=== PATIENT | male | born 1965 | race African-American/Black ===

== ENCOUNTER → 2016-06-10 | Outpatient (CLI) | payer BC ==
[~2016-06-10] MED LIST: ASPEC81 PO; Fluticasone Propionate; LPT40 PO; LSN5 PO; MAGN400T6 PO; NTRSLP4 SL; PLV75 PO; TPRSR50 PO
--- NOTE | 2016-06-10 10:19 | DIAGNOSTIC IMAGING REPORT ---
ABDOMINAL ULTRASOUND, RIGHT UPPER QUADRANT HISTORY: R74.0 Transaminitis. COMPARISON: None. FINDINGS: Pancreas: The visualized portions of the pancreas demonstrates a normal echotexture. Liver: Unremarkable. Gallbladder: No gallbladder wall thickening. No gallstones. CBD: 6 mm. Right kidney: No hydronephrosis. IMPRESSION: No significant abnormality identified within the right upper quadrant. Electronically signed by: Olaf Chaney M.D. 06/10/2016 10:17 AM
== END | disposition home or self-care (01) ==
LOC: C.ULTR 09:27
PROVIDERS: ATTEND Family Medicine
DX: R74.0 Nonspecific elevation of levels of transaminase and lactic acid dehydrogenase [LDH] (principal)